=== PATIENT | male | born 1985 | race Caucasian/White ===

== ENCOUNTER 2018-02-03 22:23 | Emergency (ER) | payer MEDICAID ==
[~2018-02-03] VITALS: Ht 182.9 cm; Wt 79.4 kg
[2018-02-03 23:13] LABS: Basophils # (auto) 0.3 uL; Basophils % (auto) 1.9 % (0.0-2.0); Eosinophils # (auto) 0 uL; Eosinophils % (auto) 0.1 % (0.0-7.0); Hematocrit 47.4 % (41.0-53.0); Hemoglobin 16.1 g/dL (13.5-17.5); Lymphocytes # (auto) 1.5 uL; Lymphocytes % (auto) 9.8 % (10.0-50.0); Mean Corpuscular Hemoglobin 30.1 pg (28.0-32.0); Mean Corpuscular Hgb Conc. 33.9 g/dL (32.0-36.0); Mean Corpuscular Volume 88.7 fL (80.0-100.0); Monocytes % (auto) 6.7 % (0.0-12.0); Neutrophils # (auto) 12.1 uL; Neutrophils % (auto) 81.5 % (37.0-80.0); Platelet Count (auto) 444 10^3/uL (140-450); Red Blood Cells 5.34 10^6/uL (4.5-5.90); Red Cell Distribution Width 13.8 % (11.8-14.3); White Blood Cell 14.8 10^3/uL (4.4-10.8)
[2018-02-03 23:30] LABS: Alanine Aminotransferase 23 U/L (16-61); Albumin 4.5 g/dL (3.4-5.0); Anion Gap 22 (5-15); Aspartate Aminotransferase 17 U/L (15-37); BUN/Creatinine Ratio 11.9; Blood Alcohol < 3.0 mg/dL (0-5); Blood Urea Nitrogen 16 mg/dL (7-18); Calcium 9.4 mg/dL (8.5-10.1); Carbon Dioxide 15 mmol/L (21-32); Chloride 101 mmol/L (98-107); GFR African American 79 mL/min; GFR Non-African American 65 mL/min; Glucose 148 mg/dL (74-106); Potassium 3.3 mmol/L (3.5-5.1); Sodium 138 mmol/L (136-145)
[2018-02-03 23:31] LABS: Alkaline Phosphatase 81 U/L (45-117); Bilirubin, Total 0.6 mg/dL (0.2-1.0)
[2018-02-04] MEDS ORDERED: LORazepam 2MG/ML-1ML VIAL IV ONE (02:45)
[2018-02-04] MEDS ORDERED: diphenhdrAMINE HCL 50 MG/1 ML VL IV ONE (02:45)
[2018-02-04] MEDS ORDERED: SODIUM CHLORIDE 0.9% 1,000 ML IV ONE (02:45)
[2018-02-04 05:27] VITALS: BP 125/86
== END 2018-02-04 05:06 | disposition home or self-care (01) ==
LOC: EDBD 22:23 → ER 22:23
DX: F41.9 Anxiety disorder, unspecified (principal); F17.210 Nicotine dependence, cigarettes, uncomplicated; F12.10 Cannabis abuse, uncomplicated; F15.10 Other stimulant abuse, uncomplicated
CPT/HCPCS: 36415; 80053; 80320; 85025; 96374; 96375; 99284; J1200; J2060

== ENCOUNTER 2024-04-20 11:48 | Emergency (ER) | payer SELFPAY ==
[~2024-04-20] VITALS: Ht 182.9 cm; Wt 83.6 kg
[~2024-04-20 11:48] MED LIST: LEVO500T31 PO; METR500T PO
[2024-04-20 12:39] VITALS: PULSE 103; RESP 19; O2SAT 97
[2024-04-20 12:43] VITALS: BP 122/89; PULSE 103; RESP 19; TEMP 98.7; O2SAT 97
[2024-04-20] MEDS: MORPHINE SULFATE INJ 2 MG/ml SYRG IV ONE (12:43)
[2024-04-20] MEDS: methylPREDNISolone SOD SUCC 125 MG/2 ML VL IV ONE (12:44)
[2024-04-20 12:59] LABS: Basophils # (auto) 0.1 10 ^3/uL (0-0.2); Basophils % (auto) 0.5 % (0.0-2.0); Eosinophils # (auto) 0.2 10 ^3/uL (0-0.8); Eosinophils % (auto) 1.8 % (0.0-7.0); Hemoglobin 15.7 g/dL (13.5-17.5); Lymphocytes # (auto) 2.8 10 ^3/uL (0.4-5.4); Lymphocytes % (auto) 27.7 % (10.0-50.0); Mean Corpuscular Hemoglobin 28.7 pg (28.0-32.0); Mean Corpuscular Hgb Conc. 34.2 g/dL (32.0-36.0); Mean Corpuscular Volume 83.9 fL (80.0-100.0); Monocytes # (auto) 1.1 10 ^3/uL (0-1.3); Monocytes % (auto) 10.8 % (0.0-12.0); Neutrophils % (auto) 59.2 % (37.0-80.0); Platelet Count (auto) 406 10^3/uL (140-450); Red Blood Cells 5.48 10^6/uL (4.5-5.90); Red Cell Distribution Width 15.3 % (11.8-14.3); White Blood Cell 10.1 10^3/uL (4.4-10.8)
[2024-04-20 13:08] LABS: Chloride 106 mmol/L (98-107); Potassium 4.6 mmol/L (3.5-5.1); Sodium 135 mmol/L (136-145)
[2024-04-20 13:09] LABS: Anion Gap 6 (5-15); Carbon Dioxide 23 mmol/L (20-31)
[2024-04-20 13:10] LABS: Calcium 9.6 mg/dL (8.7-10.4)
[2024-04-20 13:14] LABS: BUN/Creatinine Ratio 8.6 (10.0-20.0); Blood Urea Nitrogen 8 mg/dL (9-23); Glucose 156 mg/dL (74-106)
[2024-04-20] MEDS: IOHEXOL 300 MG/ML 100ML BOTTLE IJ ONE (14:38)
[2024-04-20] MEDS ORDERED: NAPR-746 PO (15:46)
[2024-04-20] MEDS ORDERED: BACDST PO (15:46)
== END 2024-04-20 15:46 | disposition left against medical advice (07) ==
LOC: ER 11:48
DX: L03.211 Cellulitis of face (principal); F17.210 Nicotine dependence, cigarettes, uncomplicated; F12.90 Cannabis use, unspecified, uncomplicated; F15.90 Other stimulant use, unspecified, uncomplicated; Z79.899 Other long term (current) drug therapy
CPT/HCPCS: 36415; 70488; 80048; 85025; 96374; 96375; 99285; J2270; J2919; Q9967